=== PATIENT | male | born 1960 | race Caucasian/White ===

== ENCOUNTER → 2020-05-19 | Outpatient (CLI) | payer BC ==
--- NOTE | 2020-05-19 10:56 | P.PAINCN ---
History of Present Illness - Reason for Consult Consult date: 05/19/20 - History of Present Illness This is 60 years old male with a chronic history of severe low back pain started 5 years ago, he denies any initiating event and he reported that he had decreased sensation in the lower extremity, mainly in the left lower extremity, the pain is constant and increases with any activity interference with her quality of life patient uses cane to ambulate, he denies any change in the bowel movement or urination but he reported that the intensity of the pain interferes with her quality of life, pain intensity is 6/10 increased to 10 over 10 with activity. Past Medical History Past Medical History: Diabetes Mellitus, Musculoskeletal Disorder, Osteoarthritis (OA), Sleep Apnea/CPAP/BIPAP Additional Past Medical History / Comment(s): doesn't use anything for sleep apnea History of Any Multi-Drug Resistant Organisms: None Reported Past Surgical History: Appendectomy Additional Past Surgical History / Comment(s): cervical fusion, circumcision Past Anesthesia/Blood Transfusion Reactions: No Reported Reaction Smoking Status: Current every day smoker Past Alcohol Use History: Occasional Additional Past Alcohol Use History / Comment(s): 1/2ppd since age of 18 Past Drug Use History: None Reported Medications and Allergies Home Medications Medication Instructions Recorded Confirmed Type metFORMIN HCL [Glucophage] 500 mg PO BID 05/15/20 05/15/20 History Allergies Allergy/AdvReac Type Severity Reaction Status Date / Time bee pollen Allergy Anaphylaxis Verified 05/15/20 15:19 egg AdvReac Nausea & Verified 05/15/20 15:19 Vomiting Physical Exam Vitals: Vital Signs Temp Pulse Resp BP Pulse Ox 05/19/20 10:20 97.7 F 68 18 145/76 94 L - Constitutional Physical Examinations : -Constitutiona : Cooperative , not in acute distress . -HEENT : nech : supple , no Lymphadenopathy , normal thyroid size . : eyes : no ptosis , no icterus, no photophobia . - neurologic : Cranial nerve II to XII intact , no focal neurological deffecit . -psychatric : alert , oriented X 3 , appropriate affect , intact judgment and insight . -Lymphatic : no Lymphadenopathy . - musculoskeltal : Lumber spine moter stegnth lower extremities ,thigh and legs 5/5 Right side , 5/5 Left side deep tendon reflexes : normal Knee Jerk , normal ankle Jerk lumber facet Loading Test =positive Right , positive Left Range of motion of the lumbar spine Flexion 30 degrees, extension 10 degrees strait leg raising test = negative bilaterally Fabere test= positive Right , and positive LT . tenderness over the Sacroiliac joint on the Right , and Left sides Results Comments: MRI of the lumbar spine multilevel lumbar bulging disc disease multilevel lumbar facet arthropathy and spondylolisthesis and lumbar spinal stenosis Assessment and Plan Plan: Assessment and plan=1-lumbar spinal stenosis. 2-lumbar degenerative disc disease. 3-lumbar spondylosis with lumbar facet arthropathy. Patient could benefit from lumbar epidural steroid injection at L4 5 or L5-S1 under fluoroscopy guidance Time with Patient: Greater than 30 PQRS Measure Charge Sheet Measure #130: Documentation of Current Meds in Medical Chart: Patient's medications documented in chart Measure #226: Tobacco Use: Screen & Cessation Intervention: Pt screened for tobacco use AND intervention given Measure #111: Pneumonia Vaccination: Pneumococcal vaccine NOT administered or previously given Measure #47: Advance Care Plan: Advance care planning discussed & documented, pt chose/unable to give Measure #412: Opioid Treatment Agreement: No documentation of signed opioid treatment agreement Measure #408: Opioid Therapy Follow-up Evaluation: Patient had NO f/u eval minimum every 3 months during opioid therapy Measure #317: Preventitive Care & Scrn High Bld Press & F/U: Pre-hypertensive or hypertensive BP documented, pt will f/u with PCP Measure #128: Body Mass Index (BMI) Screening & Follow-up: BMI documented ABOVE normal parameters - f/u documented Measure #131: Pain Assessment & Follow-up: Pain positive & plan documented, Follow-up scheduled Measure #431: Unhealthy Alcohol Use Preventative Care & Scrn: Patient not identified as an unhealthy alcohol user PQRS Narrative: Blood Pressure 145/76 Pain Intensity [Back] 2 Scale Used Numeric (1 - 10) Hx Alcohol Use (MH) No Home Medications: Ambulatory Orders metFORMIN HCL [Glucophage] 500 mg PO BID 05/15/20
== END ==
CPT/HCPCS: 99211

== ENCOUNTER 2021-03-19 18:49 | Emergency (ER) | payer BC ==
[2021-03-19 19:15] VITALS: TEMP 97.8
[2021-03-19] MEDS ORDERED: SODIUM CHLORIDE 0.9% 1,000 ML IV STA (19:36)
[2021-03-19 19:56] LABS: Basophils % (A) 0 %; Eosinophils # (A) 0.1 k/uL (0-0.7); Eosinophils % (A) 1 %; HCT 47.4 % (39.0-53.0); HGB 15.9 gm/dL (13.0-17.5); Lymphocytes # (A) 1.5 k/uL (1.0-4.8); Lymphocytes % (A) 14 %; MCH 29.2 pg (25.0-35.0); MCHC 33.5 g/dL (31.0-37.0); MCV 87.3 fL (80.0-100.0); Mean Platelet Volume 9.3; Monocytes # (A) 0.5 k/uL (0-1.0); Monocytes % (A) 5 %; Neutrophils # (A) 8.8 k/uL (1.3-7.7); Neutrophils % (A) 80 %; Platelet Count 184 k/uL (150-450); RBC 5.44 m/uL (4.30-5.90); RDW 13.7 % (11.5-15.5)
[2021-03-19 20:07] LABS: ALT 29 U/L (4-49); AST 33 U/L (17-59); African American GFR (CKD) >90 (>60 ml/min/1.73 sqM); Albumin 4.3 g/dL (3.5-5.0); Alkaline Phosphatase 79 U/L (38-126); Anion Gap 9 mmol/L; Blood Urea Nitrogen 13 mg/dL (9-20); Calcium 9.1 mg/dL (8.4-10.2); Carbon Dioxide 26 mmol/L (22-30); Chloride 102 mmol/L (98-107); Glucose 149 mg/dL (74-99); Non-African American GFR(CKD) >90 (>60 ml/min/1.73 sqM); Potassium 4.4 mmol/L (3.5-5.1); Sodium 137 mmol/L (137-145); Total Bilirubin 0.5 mg/dL (0.2-1.3); Total Protein 7.1 g/dL (6.3-8.2)
--- NOTE | 2021-03-19 20:13 | CT ---
EXAMINATION TYPE: CT brain wo con DATE OF EXAM: 03/19/2021 COMPARISON: None HISTORY: seizure CT DLP: 1153.4 mGycm Automated exposure control for dose reduction was used. FINDINGS: There is a large area of abnormal density in the left frontal lobe with loss of the overlying sulci a nd loss of the duong-white differentiation. Inferior to this area there is vasogenic edema involving t he white matter of the left frontal lobe. The findings are highly suspicious for neoplasm there is al so slight shift of midline structures to the right secondary to the mass effect. There is no acute intra or extra-axial hemorrhage. The posterior fossa is grossly normal. The intraorbital contents appear normal and symmetric. Visualized paranasal sinuses are well aerated although there are mild chronic inflammatory change in the right maxillary sinus. IMPRESSION: FINDINGS CONSISTENT WITH A LARGE PARENCHYMAL MASS INVOLVING THE LEFT FRONTAL LOBE WITH VASOGENIC ROSI A. FINDINGS ARE HIGHLY SUSPICIOUS FOR NEOPLASM, PRIMARY OR METASTATIC DISEASE. MRI OF THE BRAIN WITH CONTRAST WOULD BE USEFUL FOR FURTHER CHARACTERIZATION. THERE IS SLIGHT SHIFT OF MIDLINE STRUCTURES TO THE RIGHT.
[2021-03-19] MEDS ORDERED: levETIRAcetam IV 1,000 MG in SALINE 1 100ML.BAG IVPB STA (20:22)
[2021-03-19] MEDS ORDERED: DEXAMETHASONE SOD PHOSPHATE 10 MG/ML 1 ML VIAL IVP STA (20:22)
--- NOTE | 2021-03-19 20:52 | ED ---
General Adult HPI - General Chief complaint: Seizure Stated complaint: Seizure Time Seen by Provider: 03/19/21 19:02 Source: family, EMS Mode of arrival: EMS - History of Present Illness Initial comments: Flaco is a 60-year-old male with a history of diabetes who is brought to the emergency department today via ambulance for evaluation of a new onset seizure. He can his brother worsening of the table eating dinner, patient just finished and his brother heard him dropped something, he thought he had nodded off to take a nap but when he looked the patient's arms were stiff and he was seizing. Patient has no history of seizure. - Related Data Home Medications Medication Instructions Recorded Confirmed metFORMIN HCL [Glucophage] 500 mg PO BID 05/15/20 03/19/21 Allergies Allergy/AdvReac Type Severity Reaction Status Date / Time bee pollen Allergy Anaphylaxis Verified 03/19/21 19:51 egg AdvReac Nausea & Verified 03/19/21 19:51 Vomiting Review of Systems ROS Statement: Those systems with pertinent positive or pertinent negative responses have been documented in the HPI. ROS Other: All systems not noted in ROS Statement are negative. Past Medical History Past Medical History: Diabetes Mellitus, Musculoskeletal Disorder, Osteoarthritis (OA), Sleep Apnea/CPAP/BIPAP Additional Past Medical History / Comment(s): doesn't use anything for sleep apnea History of Any Multi-Drug Resistant Organisms: None Reported Past Surgical History: Appendectomy Additional Past Surgical History / Comment(s): cervical fusion, circumcision Past Anesthesia/Blood Transfusion Reactions: No Reported Reaction Smoking Status: Current every day smoker Past Alcohol Use History: Occasional Past Drug Use History: None Reported General Exam - General Exam Comments Initial Comments: Physical Exam GENERAL: Patient is well-developed and well-nourished. Patient is nontoxic and well- hydrated and is in no distress. HENT: Normocephalic, Atraumatic. EYES: PERRL, EOMI PULMONARY: Unlabored respirations. No audible rales rhonchi or wheezing was noted. CARDIOVASCULAR: There is a regular rate and rhythm without any murmurs gallops or rubs. ABDOMEN: Soft and nontender with normal bowel sounds. SKIN: Skin is clear with no lesions or rashes and otherwise unremarkable. : Deferred NEUROLOGIC: Patient is alert and oriented x3. Moving all extremities spontaneously MUSCULOSKELETAL: Normal extremities with adequate strength and full range of motion. No lower extremity swelling or edema. No calf tenderness. PSYCHIATRIC: Normal psychiatric evaluation. Course Vital Signs 03/19/21 03/19/21 03/19/21 19:03 19:14 20:00 Temperature 97.8 F Pulse Rate 92 90 Respiratory 18 18 Rate Blood Pressure 134/86 134/86 118/71 O2 Sat by Pulse 93 L 93 L Oximetry 03/19/21 21:00 Temperature Pulse Rate 74 Respiratory 10 L Rate Blood Pressure 156/87 O2 Sat by Pulse 94 L Oximetry EKG Findings - EKG Comments: EKG Findings:: EKG was obtained due to new-onset seizure, EKG was obtained at 2007, rate is 90 rhythm is sinus with a right bundle-branch block, Q waves are noted but no acute ST elevations or depressions no evidence of ischemia or infarction. Medical Decision Making - Medical Decision Making Patient was seen and evaluated upon arrival to the emergency department, patient was a new onset seizures postictal on arrival he is taken to CT labs were obtained. She was awake alert oriented in no acute distress. No focal deficits. He does report he is recently been suffering from what he thought was sinus pressure but no other complaints. CTs concerning for an acute brain mass with vasogenic edema. Decadron and Keppra were ordered and administered. Patient was notified of the findings with his brother at bedside. Patient requests transfer to [facility] in [place] has his father is having a CABG there tomorrow and it would be easiest for his family to be able to visit them both in the same place. Patient was accepted ER to ER transfer at [place] by Dr. Carlisle - Lab Data Result diagrams: 03/19/21 19:44 03/19/21 19:44 Lab Results 03/19/21 03/19/21 03/19/21 Range/Units 19:44 19:44 19:44 WBC 11.0 H (3.8-10.6) k/uL RBC 5.44 (4.30-5.90) m/uL Hgb 15.9 (13.0-17.5) gm/dL Hct 47.4 (39.0-53.0) % MCV 87.3 (80.0-100.0) fL MCH 29.2 (25.0-35.0) pg MCHC 33.5 (31.0-37.0) g/dL RDW 13.7 (11.5-15.5) % Plt Count 184 (150-450) k/uL MPV 9.3 Neutrophils % 80 % Lymphocytes % 14 % Monocytes % 5 % Eosinophils % 1 % Basophils % 0 % Neutrophils # 8.8 H (1.3-7.7) k/uL Lymphocytes # 1.5 (1.0-4.8) k/uL Monocytes # 0.5 (0-1.0) k/uL Eosinophils # 0.1 (0-0.7) k/uL Basophils # 0.0 (0-0.2) k/uL Sodium 137 (137-145) mmol/L Potassium 4.4 (3.5-5.1) mmol/L Chloride 102 (98-107) mmol/L Carbon Dioxide 26 (22-30) mmol/L Anion Gap 9 mmol/L BUN 13 (9-20) mg/dL Creatinine 0.79 (0.66-1.25) mg/dL Est GFR (CKD-EPI)AfAm >90 (>60 ml/min/1.73 sqM) Est GFR (CKD-EPI)NonAf >90 (>60 ml/min/1.73 sqM) Glucose 149 H (74-99) mg/dL Calcium 9.1 (8.4-10.2) mg/dL Magnesium 2.0 (1.6-2.3) mg/dL Total Bilirubin 0.5 (0.2-1.3) mg/dL AST 33 (17-59) U/L ALT 29 (4-49) U/L Alkaline Phosphatase 79 (38-126) U/L Total Protein 7.1 (6.3-8.2) g/dL Albumin 4.3 (3.5-5.0) g/dL Urine Opiates Screen (NotDetected) Ur Oxycodone Screen (NotDetected) Urine Methadone Screen (NotDetected) Ur Propoxyphene Screen (NotDetected) Ur Barbiturates Screen (NotDetected) U Tricyclic Antidepress (NotDetected) Ur Phencyclidine Scrn (NotDetected) Ur Amphetamines Screen (NotDetected) U Methamphetamines Scrn (NotDetected) U Benzodiazepines Scrn (NotDetected) Urine Cocaine Screen (NotDetected) U Marijuana (THC) Screen (NotDetected) 03/19/21 Range/Units 20:53 WBC (3.8-10.6) k/uL RBC (4.30-5.90) m/uL Hgb (13.0-17.5) gm/dL Hct (39.0-53.0) % MCV (80.0-100.0) fL MCH (25.0-35.0) pg MCHC (31.0-37.0) g/dL RDW (11.5-15.5) % Plt Count (150-450) k/uL MPV Neutrophils % % Lymphocytes % % Monocytes % % Eosinophils % % Basophils % % Neutrophils # (1.3-7.7) k/uL Lymphocytes # (1.0-4.8) k/uL Monocytes # (0-1.0) k/uL Eosinophils # (0-0.7) k/uL Basophils # (0-0.2) k/uL Sodium (137-145) mmol/L Potassium (3.5-5.1) mmol/L Chloride (98-107) mmol/L Carbon Dioxide (22-30) mmol/L Anion Gap mmol/L BUN (9-20) mg/dL Creatinine (0.66-1.25) mg/dL Est GFR (CKD-EPI)AfAm (>60 ml/min/1.73 sqM) Est GFR (CKD-EPI)NonAf (>60 ml/min/1.73 sqM) Glucose (74-99) mg/dL Calcium (8.4-10.2) mg/dL Magnesium (1.6-2.3) mg/dL Total Bilirubin (0.2-1.3) mg/dL AST (17-59) U/L ALT (4-49) U/L Alkaline Phosphatase (38-126) U/L Total Protein (6.3-8.2) g/dL Albumin (3.5-5.0) g/dL Urine Opiates Screen Not Detected (NotDetected) Ur Oxycodone Screen Not Detected (NotDetected) Urine Methadone Screen Not Detected (NotDetected) Ur Propoxyphene Screen Not Detected (NotDetected) Ur Barbiturates Screen Not Detected (NotDetected) U Tricyclic Antidepress Not Detected (NotDetected) Ur Phencyclidine Scrn Not Detected (NotDetected) Ur Amphetamines Screen Not Detected (NotDetected) U Methamphetamines Scrn Not Detected (NotDetected) U Benzodiazepines Scrn Not Detected (NotDetected) Urine Cocaine Screen Not Detected (NotDetected) U Marijuana (THC) Screen Not Detected (NotDetected) Disposition Clinical Impression: New onset seizure, Brain mass Disposition: OTHER INSTITUTION NOT DEFINED Instructions (If sedation given, give patient instructions): Seizure/Epilepsy Discharge Instructions & Follow-Up Is patient prescribed a controlled substance at d/c from ED?: No Referrals: Eduard Bach MD [Primary Care Provider] - 1-2 days - Out of Hospital Transfer - Req. Specs Out of Hospital Transfer - Requested Specifics: Neurological ICU ([facility])
--- NOTE | 2021-03-19 21:36 | XR ---
EXAMINATION TYPE: XR chest 1V DATE OF EXAM: 03/19/2021 COMPARISON: None HISTORY: Seizure TECHNIQUE: Single frontal view of the chest is obtained. FINDINGS: There is no focal air space opacity, pleural effusion, or pneumothorax seen. The cardiac silhouette size is within normal limits. The osseous structures are intact. IMPRESSION: No acute process.
[2021-03-19 21:48] LABS: Amphetamine Screen,Urine Not Detected (NotDetected); Barbiturate Screen,Urine Not Detected (NotDetected); Benzodiazepines Screen,Urine Not Detected (NotDetected); Cocaine Screen,Urine Not Detected (NotDetected); Methadone Screen, Urine Not Detected (NotDetected); Opiate Screen,Urine Not Detected (NotDetected); Oxycodone Screen, Urine Not Detected (NotDetected); Phencyclidine Screen,Urine Not Detected (NotDetected); Tricyclic Antidepressant,Urine Not Detected (NotDetected); Urn Cannabinoid Scrn Not Detected (NotDetected)
[2021-03-19 22:42] VITALS: BP 148/99; PULSE 71; RESP 14
== END 2021-03-19 23:29 | disposition other institution (70) ==
LOC: EC 18:49
DX: R56.9 Unspecified convulsions (principal); G93.89 Other specified disorders of brain; E11.9 Type 2 diabetes mellitus without complications; M19.90 Unspecified osteoarthritis, unspecified site; F17.200 Nicotine dependence, unspecified, uncomplicated; Z79.84 Long term (current) use of oral hypoglycemic drugs
CPT/HCPCS: 99285; 96374; 96375; 96361 ×2; 36415; 93005; 80053; 83735; 85025; 80306; 71045; 70450; J1100; J1953; 99284

== ENCOUNTER → 2021-04-18 | Outpatient (CLI) | payer BC ==
--- NOTE | 2021-04-18 07:24 | CT ---
EXAMINATION TYPE: CT brain wo con DATE OF EXAM: 04/18/2021 COMPARISON: 03/19/2021 HISTORY: benign neoplasm of cerebral meninges CT DLP: 1029.90 mGycm Automated exposure control for dose reduction was used. FINDINGS: There are postsurgical changes involving the left frontal lobe with a left frontal craniotomy. The ma ss in the left frontal lobe of the removed in the interval. There is mild vasogenic edema in the left frontal white matter and a small low-density subdural fluid collection with air indicating recent yancey rgery. There is no mass effect or shift of midline structures. The ventricles are normal in size. There is no acute intra or extra-axial hemorrhage. There are mild chronic inflammatory changes in the right maxillary sinus. IMPRESSION: POSTSURGICAL CHANGES INVOLVING THE LEFT FRONTAL LOBE DESCRIBED ABOVE. THERE IS NO ACUTE BLEED OR M ASS EFFECT.
== END | disposition home or self-care (01) ==
LOC: RADCTMAIN 07:00
PROVIDERS: ATTEND Family Medicine
DX: J32.0 Chronic maxillary sinusitis (principal); R90.89 Other abnormal findings on diagnostic imaging of central nervous system
CPT/HCPCS: 70450

== ENCOUNTER → 2023-08-09 | Outpatient (CLI) | payer BC ==
--- NOTE | 2023-08-09 15:31 | MR ---
EXAMINATION TYPE: MR brain wo/w con DATE OF EXAM: 08/09/2023 COMPARISON: 03/30/2022 HISTORY: 63-year-old male D32.0, F/U meningioma post surgical TECHNIQUE: Multiplanar, multisequence images of the brain and brainstem were acquired before and aft er administration of 12.5 mL IV Gadavist. Diffusion weighted imaging is performed. FINDINGS: Post surgical change of superior left craniotomy. Additional resection cavity within the posterior le ft frontal lobe superiorly. T2 bright white matter change at the resection cavity likely relates to s coliosis. Some mild patchy periventricular bright white matter change likely mild burden of chronic small vesse l ischemic disease. No abnormal enhancing lesions are identified. Dural venous sinuses are patent. No evidence for acute infarction, mass effect, midline shift, herniation, effacement of basal cistern s, or extra-axial fluid collection. The ventricles and sulci are age-appropriate. Midline structures demonstrate normal morphology. The craniocervical junction is normal. There is moderate mucosal thickening throughout the ethmoid air cells. Globes are intact. IMPRESSION: 1. Redemonstrated superior left frontal craniotomy flap with underlying resection cavity and surround ing gliosis. The overall appearance is unchanged. On postcontrast exam, no suspicious residual enhanc ement is seen here. 2. Mild burden of chronic small vessel ischemic disease. No acute intracranial abnormality. 3. Moderate chronic ethmoid sinus disease.
== END | disposition home or self-care (01) ==
LOC: RADMRIMAIN 11:27
PROVIDERS: ATTEND Family Medicine
DX: D32.0 Benign neoplasm of cerebral meninges (principal); G93.89 Other specified disorders of brain; I67.82 Cerebral ischemia; J32.2 Chronic ethmoidal sinusitis
CPT/HCPCS: 70553; A9585

== ENCOUNTER 2023-11-25 07:25 | Inpatient (IN) | payer BC ==
[2023-11-25 08:15] LABS: Basophils # (A) 0.1 k/uL (0-0.2); Basophils % (A) 1 %; Eosinophils # (A) 0.1 k/uL (0-0.7); Eosinophils % (A) 1 %; HGB 15.6 gm/dL (13.0-17.5); Lymphocytes # (A) 2.4 k/uL (1.0-4.8); Lymphocytes % (A) 28 %; MCH 28.1 pg (25.0-35.0); MCHC 31.8 g/dL (31.0-37.0); MCV 88.5 fL (80.0-100.0); Mean Platelet Volume 8.9; Monocytes # (A) 0.4 k/uL (0-1.0); Monocytes % (A) 5 %; Neutrophils # (A) 5.5 k/uL (1.3-7.7); Neutrophils % (A) 64 %; Platelet Count 183 k/uL (150-450); RBC 5.54 m/uL (4.30-5.90); RDW 14.1 % (11.5-15.5); WBC 8.6 k/uL (3.8-10.6)
[2023-11-25 08:27] LABS: ALT 20 U/L (4-49); AST 20 U/L (17-59); African American GFR (CKD) >90 (>60 ml/min/1.73 sqM); Albumin 4.6 g/dL (3.5-5.0); Alkaline Phosphatase 76 U/L (38-126); Anion Gap 9 mmol/L; Blood Urea Nitrogen 12 mg/dL (9-20); Calcium 9.3 mg/dL (8.4-10.2); Carbon Dioxide 28 mmol/L (22-30); Chloride 104 mmol/L (98-107); Glucose 147 mg/dL (74-99); Magnesium 1.9 mg/dL (1.6-2.3); Non-African American GFR(CKD) >90 (>60 ml/min/1.73 sqM); Potassium 4.7 mmol/L (3.5-5.1); Sodium 141 mmol/L (137-145)
[2023-11-25 08:28] LABS: Prothrombin Time 10.7 sec (10.0-12.5)
--- NOTE | 2023-11-25 09:26 | XR ---
EXAMINATION TYPE: XR chest 2V DATE OF EXAM: 11/25/2023 8:39 AM CLINICAL INDICATION: Male, 63 years old with history of Chest pain; COMPARISON: Chest radiographs from 03/19/2021 TECHNIQUE: XR chest 2V Frontal view of the chest. FINDINGS: Lungs/Pleura: There is no evidence of pleural effusion, focal consolidation, or pneumothorax. Pulmonary vascularity: Unremarkable. Heart/mediastinum: Cardiomediastinal silhouette is unremarkable. Musculoskeletal: No acute osseous pathology. There is fixation hardware in the lower cervical spine. Other findings: None Lines/Tubes: IMPRESSION: No acute cardiopulmonary disease/process. [facility], , 11/25/2023 9:24 AM
--- NOTE | 2023-11-25 10:30 | ED ---
Recheck HPI - General Chief Complaint: Recheck/Abnormal Lab/Rx Stated Complaint: ABN EKG Time Seen by Provider: 11/25/23 07:30 Source: patient Mode of arrival: ambulatory Limitations: no limitations - History of Present Illness Initial Comments: 63-year-old male presents to the emergency department from [facility]. Patient was presenting there today to have lumbar injections. They checked the vital signs on the patient and found his heart rate to be high. EKG demonstrated that the patient was in atrial flutter. He has no history of dysrhythmia. No coronary disease. Patient denies any chest pain or shortness of breath. Patient asymptomatic. He denies any recent illnesses. No history of DVT or PE. Does have chronic left leg swelling for which she has had extensive workup and the swelling was attributed to his lower back surgery. He denies fevers, chills or cough. No history of thyroid disease. No other all eviating, precipitating or modifying factors - Related Data Previous Rx's Medication Instructions Recorded Apixaban [Eliquis] 5 mg PO BID 30 Days #60 tab 11/26/23 Atorvastatin [Lipitor] 20 mg PO DAILY 30 Days #30 tab 11/26/23 Dapagliflozin Propanediol [Farxiga] 10 mg PO DAILY 30 Days #30 tab 11/26/23 Metoprolol Tartrate [Lopressor] 50 mg PO BID 30 Days #60 tab 11/26/23 Allergies Allergy/AdvReac Type Severity Reaction Status Date / Time bee pollen Allergy Anaphylaxis Verified 11/25/23 11:16 hydrocodone [From Vicodin] Allergy Rash/Hives Verified 11/25/23 11:16 egg AdvReac Nausea & Verified 11/25/23 11:16 Vomiting Review of Systems ROS Statement: Those systems with pertinent positive or pertinent negative responses have been documented in the HPI. ROS Other: All systems not noted in ROS Statement are negative. Past Medical History Past Medical History: Diabetes Mellitus, Musculoskeletal Disorder, Osteoarthritis (OA), Sleep Apnea/CPAP/BIPAP Additional Past Medical History / Comment(s): doesn't use anything for sleep apnea History of Any Multi-Drug Resistant Organisms: None Reported Past Surgical History: Appendectomy Additional Past Surgical History / Comment(s): cervical fusion, circumcision Past Anesthesia/Blood Transfusion Reactions: No Reported Reaction Past Psychological History: No Psychological Hx Reported Smoking Status: Current every day smoker Past Alcohol Use History: Occasional Past Drug Use History: None Reported General Exam Limitations: no limitations General appearance: alert, in no apparent distress Head exam: Present: atraumatic, normocephalic, normal inspection Eye exam: Present: normal appearance, PERRL, EOMI. Absent: scleral icterus, conjunctival injection, periorbital swelling ENT exam: Present: normal exam, mucous membranes moist Neck exam: Present: normal inspection. Absent: tenderness, meningismus, lymphadenopathy Respiratory exam: Present: normal lung sounds bilaterally. Absent: respiratory distress, wheezes, rales, rhonchi, stridor Cardiovascular Exam: Present: regular rate, tachycardia, normal heart sounds. Absent: systolic murmur, diastolic murmur, rubs, gallop, clicks GI/Abdominal exam: Present: soft, normal bowel sounds. Absent: distended, te nderness, guarding, rebound, rigid Extremities exam: Present: normal inspection, full ROM, normal capillary refill. Absent: tenderness, pedal edema, joint swelling, calf tenderness Back exam: Present: normal inspection Neurological exam: Present: alert, oriented X3, CN II-XII intact Psychiatric exam: Present: normal affect, normal mood Skin exam: Present: warm, dry, intact, normal color. Absent: rash Course Vital Signs 11/25/23 11/25/23 11/25/23 07:27 08:03 08:55 Temperature 97.6 F Pulse Rate 137 H 140 H Respiratory 20 20 20 Rate Blood Pressure 111/78 148/69 O2 Sat by Pulse 96 98 Oximetry 11/25/23 11/25/23 11/25/23 08:59 09:47 11:00 Temperature Pulse Rate 100 100 135 H Respiratory 20 20 20 Rate Blood Pressure 145/86 100/48 102/58 O2 Sat by Pulse 98 98 98 Oximetry 11/25/23 11/25/23 11/25/23 12:00 13:00 14:00 Temperature Pulse Rate 110 H 90 90 Respiratory 20 20 20 Rate Blood Pressure 105/60 106/60 110/60 O2 Sat by Pulse 98 98 98 Oximetry 11/25/23 11/25/23 11/25/23 14:57 17:00 18:00 Temperature Pulse Rate 98 77 77 Respiratory 20 20 20 Rate Blood Pressure 112/60 116/92 109/69 O2 Sat by Pulse 98 98 96 Oximetry 11/25/23 11/25/23 11/26/23 19:24 23:58 06:06 Temperature Pulse Rate 75 78 71 Respiratory 18 17 18 Rate Blood Pressure 121/79 111/82 121/91 O2 Sat by Pulse 95 Oximetry 11/26/23 11/26/23 11/26/23 09:00 12:00 13:46 Temperature Pulse Rate 69 76 68 Respiratory 18 18 18 Rate Blood Pressure 114/76 116/76 122/76 O2 Sat by Pulse 98 98 Oximetry 11/26/23 16:17 Temperature 98.6 F Pulse Rate 86 Respiratory 16 Rate Blood Pressure 125/82 O2 Sat by Pulse 98 Oximetry Medical Decision Making - Medical Decision Making Was pt. sent in by a medical professional or institution (, PA, AIR DEFENSE CONTROL OFFICER, urgent care, hospital, or jail...) When possible be specific @ -Patient presented from [facility] Did you speak to anyone other than the patient for history (EMS, parent, family, police, friend...)? What history was obtained from this source @ -Spoke with the for history Did you review nursing and triage notes (agree or disagree)? Why? @ -I reviewed and agree with nursing and triage notes Were old charts reviewed (outside hosp., previous admission, EMS record, old EKG, old radiological studies, urgent care reports/EKG's, jail records)? Report findings @ -No old charts were reviewed Differential Diagnosis (chest pain, altered mental status, abdominal pain women, abdominal pain men, vaginal bleeding, weakness, fever, dyspnea, syncope, headache, dizziness, GI bleed, back pain, seizure, CVA, palpatations, mental health, musculoskeletal)? @ -Differential Palpitations Ventricular arrhythmias, atrial arrhythmias, myocardial infarction, anemia, thyrotoxicosis, electrolyte imbalance, hypokalemia, pulmonary embolism, pulmonary disease, drugs, alcohol, anxiety, stress.... This is not meant to be an all-inclusive list. EKG interpreted by me (3pts min.). @ -Yes and demonstrates atrial flutter with a rate of 138. QRS 151. QTc of 386. No acute ST segment elevations or depressions. Right bundle branch block Repeat EKG at 1341 continues to demonstrate atrial flutter with a rate of 68. QRS 169. QTc of 440. No acute ST segment elevations or depressions X-rays interpreted by me (1pt min.). @ -Yes and demonstrates no acute process CT interpreted by me (1pt min.). @ -None done U/S interpreted by me (1pt. min.). @ -None done What testing was considered but not performed or refused? (CT, X-rays, U/S, labs )? Why? @ -None What meds were considered but not given or refused? Why? @ -None Did you discuss the management of the patient with other professionals (professionals i.e. , PA, AIR DEFENSE CONTROL OFFICER, lab, RT, psych nurse, web content & social media manager, blood bank credit clerk, teacher, loan workout officer, community case manager)? Give summary @ -Spoke with Dr. France for admission Was smoking cessation discussed for >3mins.? @ -No Was critical care preformed (if so, how long)? @ -Yes, 35 minutes for management of rapid A-fib Were there social determinants of health that impacted care today? How? (Homelessness, low income, unemployed, alcoholism, drug addiction, transportation, low edu. Level, literacy, decrease access to med. care, retirement, rehab)? @ -No Was there de-escalation of care discussed even if they declined (Discuss DNR or withdrawal of care, Hospice)? DNR status @ -No What co-morbidities impacted this encounter? (DM, HTN, Smoking, COPD, CAD, Cancer, CVA, ARF, Chemo, Hep., AIDS, mental health diagnosis, sleep apnea, morbid obesity)? @ -None Was patient admitted / discharged? Hospital course, mention meds given and route, prescriptions, significant lab abnormalities, going to OR and other pertinent info. @ -Upon arrival patient seen and evaluated in room 15. Thorough history and physical exam was performed. IV access was established. Laboratory studies are conducted. Chest x-ray was performed. Patient initiated on a Cardizem and heparin drip. Will be admitted for A-fib with RVR Undiagnosed new problem with uncertain prognosis? @ -Yes Drug Therapy requiring intensive monitoring for toxicity (Heparin, Nitro, Insul in, Cardizem)? @ -Cardizem, heparin Were any procedures done? @ -No Diagnosis/symptom? @ -New onset A-fib with RVR Acute, or Chronic, or Acute on Chronic? @ -Acute Uncomplicated (without systemic symptoms) or Complicated (systemic symptoms)? @ -Complicated Side effects of treatment? @ -No Exacerbation, Progression, or Severe Exacerbation? @ -No Poses a threat to life or bodily function? How? (Chest pain, [place], [place], pneumonia, PE, COPD, DKA, ARF, appy, cholecystitis, CVA, Diverticulitis, Homicidal, Suicidal, threat to staff... and all critical care pts) @ -No - Lab Data Result diagrams: 11/26/23 06:29 11/26/23 06:29 Lab Results 11/25/23 11/25/23 11/25/23 Range/Units 07:31 07:31 07:31 WBC 8.6 (3.8-10.6) k/uL RBC 5.54 (4.30-5.90) m/uL Hgb 15.6 (13.0-17.5) gm/dL Hct 49.0 (39.0-53.0) % MCV 88.5 (80.0-100.0) fL MCH 28.1 (25.0-35.0) pg MCHC 31.8 (31.0-37.0) g/dL RDW 14.1 (11.5-15.5) % Plt Count 183 (150-450) k/uL MPV 8.9 Neutrophils % 64 % Lymphocytes % 28 % Monocytes % 5 % Eosinophils % 1 % Basophils % 1 % Neutrophils # 5.5 (1.3-7.7) k/uL Lymphocytes # 2.4 (1.0-4.8) k/uL Monocytes # 0.4 (0-1.0) k/uL Eosinophils # 0.1 (0-0.7) k/uL Basophils # 0.1 (0-0.2) k/uL PT 10.7 (10.0-12.5) sec INR 1.0 (<1.2) APTT 26.0 (22.0-30.0) sec Sodium 141 (137-145) mmol/L Potassium 4.7 (3.5-5.1) mmol/L Chloride 104 (98-107) mmol/L Carbon Dioxide 28 (22-30) mmol/L Anion Gap 9 mmol/L BUN 12 (9-20) mg/dL Creatinine 0.66 (0.66-1.25) mg/dL Est GFR (CKD-EPI)AfAm >90 (>60 ml/min/1.73 sqM) Est GFR (CKD-EPI)NonAf >90 (>60 ml/min/1.73 sqM) Glucose 147 H (74-99) mg/dL Calcium 9.3 (8.4-10.2) mg/dL Magnesium 1.9 (1.6-2.3) mg/dL Total Bilirubin 1.0 (0.2-1.3) mg/dL AST 20 (17-59) U/L ALT 20 (4-49) U/L Alkaline Phosphatase 76 (38-126) U/L Troponin I (0.000-0.034) ng/mL Total Protein 7.0 (6.3-8.2) g/dL Albumin 4.6 (3.5-5.0) g/dL TSH 3.390 (0.465-4.680) mIU/L 11/25/23 Range/Units 07:31 WBC (3.8-10.6) k/uL RBC (4.30-5.90) m/uL Hgb (13.0-17.5) gm/dL Hct (39.0-53.0) % MCV (80.0-100.0) fL MCH (25.0-35.0) pg MCHC (31.0-37.0) g/dL RDW (11.5-15.5) % Plt Count (150-450) k/uL MPV Neutrophils % % Lymphocytes % % Monocytes % % Eosinophils % % Basophils % % Neutrophils # (1.3-7.7) k/uL Lymphocytes # (1.0-4.8) k/uL Monocytes # (0-1.0) k/uL Eosinophils # (0-0.7) k/uL Basophils # (0-0.2) k/uL PT (10.0-12.5) sec INR (<1.2) APTT (22.0-30.0) sec Sodium (137-145) mmol/L Potassium (3.5-5.1) mmol/L Chloride (98-107) mmol/L Carbon Dioxide (22-30) mmol/L Anion Gap mmol/L BUN (9-20) mg/dL Creatinine (0.66-1.25) mg/dL Est GFR (CKD-EPI)AfAm (>60 ml/min/1.73 sqM) Est GFR (CKD-EPI)NonAf (>60 ml/min/1.73 sqM) Glucose (74-99) mg/dL Calcium (8.4-10.2) mg/dL Magnesium (1.6-2.3) mg/dL Total Bilirubin (0.2-1.3) mg/dL AST (17-59) U/L ALT (4-49) U/L Alkaline Phosphatase (38-126) U/L Troponin I <0.012 (0.000-0.034) ng/mL Total Protein (6.3-8.2) g/dL Albumin (3.5-5.0) g/dL TSH (0.465-4.680) mIU/L Disposition Clinical Impression: New onset atrial flutter Disposition: ADMITTED IP TO THIS [facility] Condition: Stable Is patient prescribed a controlled substance at d/c from ED?: No Time of Disposition: 11:33 Decision to Admit Reason: Admit from EC Decision Date: 11/25/23 Decision Time: 11:33
[2023-11-25] MEDS ORDERED: HEPARIN SODIUM 1,000 UN/ML (10ML VL) IV PRN (11:08)
[2023-11-25] MEDS: HEPARIN SOD,PORK IN 0.45% NACL 25,000 UNIT in 0.45% NACL 1 250ML.BAG IV SCH (11:27)
[2023-11-25] MEDS: HEPARIN SODIUM 1,000 UN/ML (10ML VL) IV ONE (11:29)
[2023-11-25] MEDS ORDERED: NALOXONE 0.4 MG/ML 1 ML VIAL IV PRN (11:34)
[2023-11-25] MEDS: DILTIAZEM 125 MG in SODIUM CHLORIDE 0.9% 100 ML IV SCH (11:54)
[2023-11-25] MEDS: DILTIAZEM DRIP BOLUS FROM BAG 1 MG SOLN IV ONE (11:56)
--- NOTE | 2023-11-25 15:13 | P.HPIM ---
History of Present Illness H&P Date: 11/25/23 History of Presenting Illness: Patient is a very pleasant 63-year-old male with a past medical history of nicotine dependence and chronic back pain status post cervical fusion follows outpatient with pain management. He presented to the hospital from [facility] where he initially presented to have steroid injections to the lumbar spine secondary to chronic pain. Preprocedure vital signs revealed patient to have tachycardia with heart rate in 140s and an EKG was completed showing new onset atrial flutter. Patient was asymptomatic but sent to our facility for evaluation. Upon arrival to our hospital, patient underwent evaluation in the emergency department. Vital signs upon arrival show blood pressure 111/78, heart rate 137, respiratory rate 20, temp 97.6 F, and SpO2 of 96% on room air. EKG was completed showing atrial flutter with RVR at 138 bpm. Chest x-ray completed negative for acute cardiopulmonary process. Labs completed and reviewed. CBC unremarkable. Coagulation profile normal findings. BMP showing mild hyperglycemia with glucose of 147 otherwise normal findings. Magnesium 1.9. Liver profile unremarkable. Troponin was less than 0.012 and TSH was also normal findings at 3.390. Patient was started on anticoagulation with low intensity heparin infusion along with Cardizem infusion for rate control. Patient was admitted under our services with consultation to cardiology. Upon evaluation at bedside, patient remains asymptomatic to any complaints. He denies having any headache, lightheadedness, dizziness, chest pain, pa lpitations, or shortness of breath. He reports chronic lower back pain and occasional lower extremity edema. Patient denies cardiac history but does report extensive cardiac history with family including his father and brother both previously being diagnosed with atrial fibrillation. [id number] score is 0 patient denies history of hypertension, CHF, TIAs, or any other cardiac history. He reports his hemoglobin A1c is borderline prediabetes. He denies having any daily medication regimen. Review of systems: Pertinent positives and negatives as discussed in HPI, a complete review of systems was performed and all other systems are negative. Physical exam: Vital signs reviewed and stable. General: Nontoxic, no distress and appears stated age. Derm: Skin warm and dry, normal coloration for ethnicity. Head: Atraumatic, normocephalic and symmetric. Eyes: EOM's intact, no lid lag, and anicteric sclera Mouth: no lip lesions, mucus membranes moist Cardiovascular: Tachycardic rate and regular with normal S1S2, no murmur, positive posterior tibial pulses bilaterally, and cap refill < 2 seconds. Lungs: Respirations even, regular, and unlabored on room air. Lungs CTA bilaterally, no rhonchi, no rales, no wheezing, and no accessory muscle usage. Abdominal: soft, nontender to palpation, no guarding, no appreciable organomegaly Ext: ROM intact. No gross muscle atrophy, no edema, no contractures Neuro: Speech clear, face symmetrical and CN II-XII grossly intact with no noted focal neuro deficits Psych: Alert and oriented to person, place, time, and situation. Appropriate and pleasant affect. Assessment and Plan of Care: Atrial flutter with RVR, New onset -Cardiology consulted, appreciate recommendations -Telemetry monitoring -Troponin was negative at less than 0.012. TSH normal findings at 3.390. -Continue low intensity heparin infusion with close monitoring of PTT every 6 hours for goal therapeutic range of 45 to 79 seconds. -Continue Cardizem infusion at 5 mg/h, titrate up to 15 mg/h for goal heart rate of 80 to 100 bpm. -Echocardiogram to be completed Nicotine dependence -Recommend smoking cessation. Order placed for nicotine patch 14 mg daily. Data and imaging reviewed: As stated above in HPI The patient is admitted with an anticipated less than 2 midnight stay for evaluation of new onset atrial fibrillation with RVR CODE STATUS: Full code DVT prophylaxis: Heparin infusion Anticipated discharge date: Pending clinical course, likely within the next [address]: Home Patient was seen independently by Nurse Practitioner. This document was prepared using [employer] dictation software. Please allow for errors in regulatory technician while rare they do occur. I reviewed the documentation as provided by the ODALIS above, who is the original author of this note. I agree with the documented assessment and plan, with the following changes: none Past Medical History Past Medical History: Diabetes Mellitus, Musculoskeletal Disorder, Osteoarthritis (OA), Sleep Apnea/CPAP/BIPAP Additional Past Medical History / Comment(s): doesn't use anything for sleep a pnea History of Any Multi-Drug Resistant Organisms: None Reported Past Surgical History: Appendectomy Additional Past Surgical History / Comment(s): cervical fusion, circumcision Past Anesthesia/Blood Transfusion Reactions: No Reported Reaction Past Psychological History: No Psychological Hx Reported Smoking Status: Current every day smoker Past Alcohol Use History: Occasional Past Drug Use History: None Reported Medications and Allergies Home Medications Medication Instructions Recorded Confirmed Type Apixaban [Eliquis] 5 mg PO BID 30 Days #60 tab 11/25/23 Rx Allergies Allergy/AdvReac Type Severity Reaction Status Date / Time bee pollen Allergy Anaphylaxis Verified 11/25/23 11:16 hydrocodone [From Vicodin] Allergy Rash/Hives Verified 11/25/23 11:16 egg AdvReac Nausea & Verified 11/25/23 11:16 Vomiting Physical Exam Osteopathic Statement: *. No significant issues noted on an osteopathic structural exam other than those noted in the History and Physical/Consult. Vitals: Vital Signs Temp Pulse Resp BP Pulse Ox 11/25/23 11:00 135 H 20 102/58 98 11/25/23 09:47 100 20 100/48 98 11/25/23 08:59 100 20 145/86 98 11/25/23 08:55 20 11/25/23 08:03 140 H 20 148/69 98 11/25/23 07:27 97.6 F 137 H 20 111/78 96 Intake and Output 11/24/23 11/25/23 11/25/23 22:59 06:59 14:59 Other: Weight 127.006 kg Results CBC & Chem 7: 11/26/23 06:29 11/26/23 06:29 Labs: Abnormal Lab Results - Last 24 Hours (Table) 11/25/23 Range/Units 07:31 Glucose 147 H (74-99) mg/dL
--- NOTE | 2023-11-25 17:13 | CA ---
Transthoracic Echo Report Name: Flaco Marquez Age: 63 Gender: M : 1960 Exam Date: 11/25/2023 15:21 Exam Location: [facility] Ht (in): 70 Wt (lb): 280 Ordering Physician: Royer Cha Attending/Referring Phys: Beam Builder Helper Deanna Herrmann RDCS Procedure CPT: Indications: eval function and structure Cardiac Hx: Technical Quality: Technically difficult study Contrast 1: Definity Total Dose (mL): 2 Contrast 2: Total Dose (mL): MEASUREMENTS (Male / Female) Normal Values 2D ECHO LVOT Diameter 2.4 cm LV Diastolic Volume MOD BP 147.9 cm??? 67 - 155 / 56 - 104 cm??? LV Systolic Volume MOD BP 60.2 cm??? 22 - 58 / 19 - 49 cm??? LV Ejection Fraction MOD BP 59.3 % >= 55 % LV Cardiac Index MOD BP 3221.5 cm???/min???m??? LV Diastolic Volume MOD 4C 173.1 cm??? LV Systolic Volume MOD 4C 66.9 cm??? LV Ejection Fraction MOD 4C 61.4 % LV Cardiac Index MOD 4C 3900.8 cm???/min???m??? LV Diastolic Length 4C 8.7 cm LV Systolic Length 4C 7.0 cm LV Diastolic Volume MOD 2C 126.6 cm??? LV Systolic Volume MOD 2C 50.2 cm??? LV Ejection Fraction MOD 2C 60.3 % LV Cardiac Index MOD 2C 2802.3 cm???/min???m??? LV Diastolic Length 2C 8.6 cm LV Systolic Length 2C 7.5 cm LA Volume 44.6 cm??? 18 - 58 / 22 - 52 cm??? LA Volume Index 17.4 cm???/m??? 16 - 28 cm???/m??? DOPPLER AV Peak Velocity 98.3 cm/s AV Peak Gradient 3.9 mmHg AV Mean Velocity 69.2 cm/s AV Mean Gradient 2.1 mmHg AV Velocity Time Integral 16.6 cm LVOT Peak Velocity 89.7 cm/s LVOT Peak Gradient 3.2 mmHg LVOT Velocity Time Integral 15.0 cm LVOT Stroke Volume 70.5 cm??? LVOT Stroke Volume Index 29.3 ml/m??? LVOT Cardiac Index 2586.8 cm???/min???m??? AV Area Cont Eq vti 4.2 cm??? AV Area Cont Eq pk 4.3 cm??? PV Peak Velocity 87.8 cm/s PV Peak Gradient 3.1 mmHg FINDINGS Left Ventricle Left ventricular ejection fraction is estimated at 45-50 %. Mildly increased left ventricular systolic volume. No obvious regional wall motion abnormalities. Right Ventricle Right ventricle not well visualized. Right Atrium Right atrium not well visualized. Left Atrium Normal left atrial size. Mitral Valve Structurally normal mitral valve. No mitral stenosis, regurgitation or prolapse. Aortic Valve Trileaflet aortic valve. No aortic valve stenosis or regurgitation. Tricuspid Valve Structurally normal tricuspid valve. No tricuspid stenosis, regurgitation or prolapse. Pulmonic Valve Pulmonic valve not well visualized. No pulmonic stenosis. No pulmonic regurgitation. Pericardium No pericardial effusion. Aorta Aortic annulus normal. CONCLUSIONS Left ventricular ejection fraction 45-50% No mitral regurgitation No tricuspid regurgitation No pericardial effusion Previewed by: Dr. Kervin Batista DO (Electronically Signed) Final Date: 25 November 2023 17:12
[2023-11-25] MEDS ORDERED: ACETAMINOPHEN TAB 325 MG TAB PO PRN (18:48)
[2023-11-26 06:43] LABS: Basophils % (A) 0 %; Eosinophils # (A) 0.1 k/uL (0-0.7); Eosinophils % (A) 2 %; HCT 46.7 % (39.0-53.0); HGB 15.6 gm/dL (13.0-17.5); Lymphocytes # (A) 2.1 k/uL (1.0-4.8); Lymphocytes % (A) 28 %; MCH 28.5 pg (25.0-35.0); MCHC 33.3 g/dL (31.0-37.0); MCV 85.4 fL (80.0-100.0); Mean Platelet Volume 8.8; Monocytes # (A) 0.3 k/uL (0-1.0); Monocytes % (A) 4 %; Neutrophils % (A) 65 %; Platelet Count 171 k/uL (150-450); RBC 5.46 m/uL (4.30-5.90); RDW 14.5 % (11.5-15.5); WBC 7.7 k/uL (3.8-10.6)
[2023-11-26 06:44] LABS: Basophils % (A) 0 %; Eosinophils # (A) 0.1 k/uL (0-0.7); Eosinophils % (A) 2 %; HCT 45.1 % (39.0-53.0); HGB 15.4 gm/dL (13.0-17.5); Lymphocytes # (A) 2.1 k/uL (1.0-4.8); Lymphocytes % (A) 28 %; MCH 29.2 pg (25.0-35.0); MCHC 34.1 g/dL (31.0-37.0); MCV 85.4 fL (80.0-100.0); Mean Platelet Volume 9.1; Monocytes # (A) 0.3 k/uL (0-1.0); Monocytes % (A) 5 %; Neutrophils # (A) 4.9 k/uL (1.3-7.7); Neutrophils % (A) 64 %; Platelet Count 154 k/uL (150-450); RBC 5.28 m/uL (4.30-5.90); RDW 14.5 % (11.5-15.5); WBC 7.7 k/uL (3.8-10.6)
[2023-11-26 06:51] LABS: INR 1.1 (<1.2); Prothrombin Time 11.8 sec (10.0-12.5)
[2023-11-26 07:18] LABS: African American GFR (CKD) >90 (>60 ml/min/1.73 sqM); Anion Gap 9 mmol/L; Blood Urea Nitrogen 14 mg/dL (9-20); Calcium 9.1 mg/dL (8.4-10.2); Carbon Dioxide 26 mmol/L (22-30); Chloride 102 mmol/L (98-107); Glucose 147 mg/dL (74-99); Non-African American GFR(CKD) >90 (>60 ml/min/1.73 sqM); Sodium 137 mmol/L (137-145)
[2023-11-26] MEDS: NICOTINE 14MG/24HR PATCH TRANSDERM SCH (07:43)
--- NOTE | 2023-11-26 11:48 | P.PN ---
Subjective Progress Note Date: 11/26/23 Hospital Course: Patient is a very pleasant 63-year-old male with a past medical history of nicotine dependence and chronic back pain status post cervical fusion follows outpatient with pain management. He presented to the hospital from [facility] where he initially presented to have steroid injections to the lumbar spine secondary to chronic pain. Preprocedure vital signs revealed patient to have tachycardia with heart rate in 140s and an EKG was completed showing new onset atrial flutter. Patient was asymptomatic but sent to our facility for evaluation. Upon arrival to our hospital, patient underwent evaluation in the emergency department. Vital signs upon arrival show blood pressure 111/78, heart rate 137, respiratory rate 20, temp 97.6 F, and SpO2 of 96% on room air. EKG was completed showing atrial flutter with RVR at 138 bpm. Chest x-ray completed negative for acute cardiopulmonary process. Labs completed and reviewed. CBC unremarkable. Coagulation profile normal findings. BMP showing mild hyperglycemia with glucose of 147 otherwise normal findings. Magnesium 1.9. Liver profile unremarkable. Troponin was less than 0.012 and TSH was also normal findings at 3.390. Patient was started on anticoagulation with low intensity heparin infusion along with Cardizem infusion for rate control. Patient was admitted under our services with consultation to cardiology. Echocardiogram was completed showing a reduced EF of 45 to 50% with no reported structural or valvular abnormalities. Physical exam: Vital signs reviewed and stable. General: Nontoxic, no distress and appears stated age. Derm: Skin warm and dry, normal coloration for ethnicity. Head: Atraumatic, normocephalic and symmetric. Eyes: EOM's intact, no lid lag, and anicteric sclera Mouth: no lip lesions, mucus membranes moist Cardiovascular: Regular rate and regular with normal S1S2, no murmur, positive posterior tibial pulses bilaterally, and cap refill < 2 seconds. Lungs: Respirations even, regular, and unlabored on room air. Lungs CTA bilaterally, no rhonchi, no rales, no wheezing, and no accessory muscle usage. Abdominal: soft, nontender to palpation, no guarding, no appreciable organomegaly Ext: ROM intact. No gross muscle atrophy, no edema, no contractures Neuro: Speech clear, face symmetrical and CN II-XII grossly intact with no noted focal neuro deficits Psych: Alert and oriented to person, place, time, and situation. Appropriate and pleasant affect. Assessment and Plan of Care: Atrial flutter with RVR, New onset -Rate currently controlled, patient remains in atrial flutter on monitor with controlled rate in 70s. Cardizem infusion discontinued and order placed for metoprolol 25 mg twice daily starting now. -Echocardiogram was completed showing a reduced EF of 45 to 50% with no reported structural or valvular abnormalities. -Cardiology consulted, appreciate recommendations -Telemetry monitoring -Troponin was negative at less than 0.012. TSH normal findings at 3.390. -Continue low intensity heparin infusion with close monitoring of PTT every 6 hours for goal therapeutic range of 45 to 79 seconds. -[id number] score is 0 patient denies history of hypertension, CHF, TIA/CVAs, or any other cardiac history. 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 Nicotine dependence -Recommend smoking cessation. Order placed for nicotine patch 14 mg daily. Data and imaging reviewed: Echocardiogram was completed and reviewed report showing a reduced EF of 45 to 50% with no reported structural or valvular abnormalities. Morning labs reviewed. CBC remains unremarkable. PTT was slightly subth erapeutic at 44.4. BMP remains unremarkable. Blood glucose 147. Vital signs reviewed. Blood pressure 114/76, heart rate 69, respiratory rate 18, and SpO2 of 95% on room air. CODE STATUS: Full code DVT prophylaxis: Heparin infusion Anticipated discharge date: Pending clinical course, likely within the next 24 hours. Awaiting cardiology evaluation. Anticipated discharge place: Home Patient was seen independently by Nurse Practitioner. This document was prepared using [employer] dictation software. Please allow for errors in plant taxonomist while rare they do occur. I reviewed the documentation as provided by the ODALIS above, who is the original author of this note. I agree with the documented assessment and plan, with the following changes: none Objective - Vital Signs Vital signs: Vital Signs Temp 97.6 F 11/25/23 07:27 Pulse 71 11/26/23 06:06 Resp 18 11/26/23 06:06 BP 121/91 11/26/23 06:06 Pulse Ox 95 11/25/23 19:24 FiO2 Intake & Output 11/25/23 11/26/23 11/26/23 18:59 06:59 18:59 Intake Total 250 Balance 250 Weight 127.006 kg Intake: Intake, IV Titration 250 Amount Heparin Sod,Pork in 0.45% 250 NaCl 25,000 unit In 0.45 % NaCl 1 250ml.bag @ 7.87 UNITS/KG/HR 9.995 mls/hr IV .Q24H [facility] Rx#: [id number] - Labs CBC & Chem 7: 11/26/23 06:29 11/26/23 06:29 Labs: Abnormal Lab Results - Last 24 Hours (Table) 11/25/23 11/25/23 11/26/23 Range/Units 17:05 20:33 06:29 APTT 45.6 H 44.4 H (22.0-30.0) sec Creatinine 0.57 L (0.66-1.25) mg/dL Glucose 147 H (74-99) mg/dL
[2023-11-26] MEDS: METOPROLOL TARTRATE 25 MG TAB PO SCH (12:19)
--- NOTE | 2023-11-26 14:44 | P.CRDCN ---
History of Present Illness Consult date: 11/26/23 History of present illness: HISTORY OF PRESENTING ILLNESS 63-year-old with PMH of smoking, back pain, was being seen by a orthopedic for an outpatient back spine injection where anesthesiologist noticed that he was in atrial flutter with high heart rate and was referred to the hospital. Patient reports that he has not had any symptoms of chest pain chest pressure shortness of breath. He denies any palpitation lightheadedness or dizziness. He denies any prior history of cardiovascular conditions. He denies any history of diabetes stroke RI. Admission labs shows hemoglobin 15.6, no concerns of bleeding, BUN 12, creatinine 0.6, potassium 4.2, magnesium 1.9, troponin was negative TSH was 3.3 REVIEW OF SYSTEMS 14 point review of system is negative except what is mentioned above in HPI. PHYSICAL EXAMINATION Vital signs reviewed. Head: Normocephalic. Eyes: Sclerae nonicteric. Neck: Brisk carotid upstroke, no jugular venous distention. Lungs: Clear to auscultation. Heart: Irregularly irregular, S1-S2, no S3, no murmur or rub. Abdomen: Soft nontender, positive bowel sounds. Extremities: No edema, intact distal pulses. Neuro: Alert, oritented, no focal deficits. Detailed neuro exam was not performed. ASSESSMENT Newly diagnosed atrial flutter with RVR. Currently rate controlled. Diagnosed in November 2023 first. 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 Recommended early outpatient follow-up with recommended outpatient MALLIKA cardioversion. Recommend outpatient stress testing Matthew Ly MD, FACC, RPVI Thank you for allowing [facility] to participate in this patient's care. Feel free to reach out in case of any followup questions. Past Medical History Past Medical History: Diabetes Mellitus, Musculoskeletal Disorder, Osteoarthritis (OA), Sleep Apnea/CPAP/BIPAP Additional Past Medical History / Comment(s): doesn't use anything for sleep apnea History of Any Multi-Drug Resistant Organisms: None Reported Past Surgical History: Appendectomy Additional Past Surgical History / Comment(s): cervical fusion, circumcision Past Anesthesia/Blood Transfusion Reactions: No Reported Reaction Past Psychological History: No Psychological Hx Reported Smoking Status: Current every day smoker Past Alcohol Use History: Occasional Past Drug Use History: None Reported Medications and Allergies Allergies Allergy/AdvReac Type Severity Reaction Status Date / Time bee pollen Allergy Anaphylaxis Verified 11/25/23 11:16 hydrocodone [From Vicodin] Allergy Rash/Hives Verified 11/25/23 11:16 egg AdvReac Nausea & Verified 11/25/23 11:16 Vomiting Physical Exam Vitals: Vital Signs Pulse Resp BP Pulse Ox 11/26/23 13:46 68 18 122/76 98 11/26/23 12:00 76 18 116/76 98 11/26/23 09:00 69 18 114/76 11/26/23 06:06 71 18 121/91 11/25/23 23:58 78 17 111/82 11/25/23 19:24 75 18 121/79 95 11/25/23 18:00 77 20 109/69 96 11/25/23 17:00 77 20 116/92 98 11/25/23 14:57 98 20 112/60 98 Intake and Output 11/25/23 11/26/23 11/26/23 22:59 06:59 14:59 Intake Total 250 115.833 Balance 250 115.833 Intake: Intake, IV Titration 250 115.833 Amount Diltiazem 125 mg In 115.833 Sodium Chloride 0.9% 100 ml @ 5 MG/HR 5 mls/hr IV .Q24H [facility] Rx#:[id number] Heparin Sod,Pork in 0.45% 250 NaCl 25,000 unit In 0.45 % NaCl 1 250ml.bag @ 7.87 UNITS/KG/HR 9.995 mls/hr IV .Q24H [facility] Rx#: [id number] Results 11/26/23 06:29 11/26/23 06:29 Coagulation 11/25/23 11/25/23 11/26/23 Range/Units 17:05 20:33 06:29 PT 11.8 (10.0-12.5) sec APTT 45.6 H 44.4 H (22.0-30.0) sec CBC 11/26/23 11/26/23 Range/Units 06:29 06:29 WBC 7.7 7.7 (3.8-10.6) k/uL RBC 5.46 5.28 (4.30-5.90) m/uL Hgb 15.6 15.4 (13.0-17.5) gm/dL Hct 46.7 45.1 (39.0-53.0) % Plt Count 171 154 (150-450) k/uL Comprehensive Metabolic Panel 11/26/23 Range/Units 06:29 Sodium 137 (137-145) mmol/L Potassium 4.0 (3.5-5.1) mmol/L Chloride 102 (98-107) mmol/L Carbon Dioxide 26 (22-30) mmol/L BUN 14 (9-20) mg/dL Creatinine 0.57 L (0.66-1.25) mg/dL Glucose 147 H (74-99) mg/dL Calcium 9.1 (8.4-10.2) mg/dL Current Medications Generic Name Dose Route Start Last Admin Trade Name Freq PRN Reason Stop Dose Admin Acetaminophen 650 mg 11/25/23 18:48 Acetaminophen Tab 325 Mg Tab PO Q6HR PRN Mild Pain or Fever > 100.5 Apixaban 5 mg 11/26/23 21:00 Apixaban 5 Mg Tab PO BID [facility] Protocol Atorvastatin Calcium 20 mg 11/26/23 14:45 Atorvastatin 20 Mg Tab PO DAILY [facility] Dapagliflozin 10 mg 11/26/23 14:45 Dapagliflozin Propanediol 10 Mg Tablet PO DAILY [facility] Metoprolol Tartrate 50 mg 11/26/23 21:00 Metoprolol Tartrate 25 Mg Tab PO BID [facility] Naloxone HCl 0.2 mg 11/25/23 11:34 Naloxone 0.4 Mg/Ml 1 Ml Vial IV Q2M PRN Opioid Reversal Nicotine 1 patch 11/25/23 18:45 11/26/23 08:55 Nicotine 14mg/24hr Patch TRANSDERM Not Given DAILY [facility] Intake and Output 11/25/23 11/26/23 11/26/23 22:59 06:59 14:59 Intake Total 250 115.833 Balance 250 115.833 Intake: Intake, IV Titration 250 115.833 Amount Diltiazem 125 mg In 115.833 Sodium Chloride 0.9% 100 ml @ 5 MG/HR 5 mls/hr IV .Q24H [facility] Rx#:[id number] Heparin Sod,Pork in 0.45% 250 NaCl 25,000 unit In 0.45 % NaCl 1 250ml.bag @ 7.87 UNITS/KG/HR 9.995 mls/hr IV .Q24H [facility] Rx#: [id number] 11/26/23 06:29 11/26/23 06:29
--- NOTE | 2023-11-26 15:16 | P.DS ---
Providers Date of admission: 11/25/23 11:34 Expected date of discharge: 11/26/23 Attending physician: Aminah France MD Consults: 11/25/23 11:34 Consult Physician Urgent Consulting Provider: [facility] Consult Reason/Comments: new onset aflutter Do you want consulting provider notified?: Yes Primary care physician: Eduard Ribeiro [facility] Course: Discharge Diagnosis: Atrial flutter with RVR, New onset . Rate currently controlled, patient remains in atrial flutter on monitor with controlled rate in 70s. Patient evaluated by cardiology recommending outpatient sleep apnea study, stress testing and MALLIKA with cardioversion. Cardiology clearing patient from their perspective for discharge. Patient medically stable at this time and free from any complaints. Patient discharged home on metoprolol 50 mg twice daily, Eliquis 5 mg twice daily, Lipitor 20 mg daily, and Farxiga 10 mg daily. Newly diagnosed heart failure with mildly reduced EF of 45 to 50% Nicotine dependence. Recommend smoking cessation. Hospital Course: Patient is a very pleasant 63-year-old male with a past medical history of nicotine dependence and chronic back pain status post cervical fusion follows outpatient with pain management. He presented to the hospital from [facility] where he initially presented to have steroid injections to the lumbar spine secondary to chronic pain. Preprocedure vital signs revealed patient to have tachycardia with heart rate in 140s and an EKG was completed showing new onset atrial flutter. Patient was asymptomatic but sent to our facility for evaluation. Upon arrival to our hospital, patient underwent evaluation in the emergency department. Vital signs upon arrival show blood pressure 111/78, heart rate 137, respiratory rate 20, temp 97.6 F, and SpO2 of 96% on room air. EKG was completed showing atrial flutter with RVR at 138 bpm. Chest x-ray completed negative for acute cardiopulmonary process. Labs completed and reviewed. CBC unremarkable. Coagulation profile normal findings. BMP showing mild hyperglycemia with glucose of 147 otherwise normal findings. Magnesium 1.9. Liver profile unremarkable. Troponin was less than 0.012 and TSH was also normal findings at 3.390. Patient was started on anticoagulation with low intensity heparin infusion along with Cardizem infusion for rate control. Patient was admitted under our services with consultation to cardiology. Echocardiogram was completed showing a reduced EF of 45 to 50% with no reported structural or valvular abnormalities. Rate currently controlled, patient remains in atrial flutter on monitor with controlled rate in 70s. Patient evaluated by cardiology recommending outpatient sleep apnea study, stress testing and MALLIKA with cardioversion. Cardiology clearing patient from their perspective for discharge. Patient medically stable at this time and free from any complaints. Patient discharged home on metoprolol 50 mg twice daily, Eliquis 5 mg twice daily, Lipitor 20 mg daily, and Farxiga 10 mg daily. Patient to follow-up with cardiology office for results of A1c, lipid profile, and BNP results per frame opener as they are not available at time of discharge. Physical exam: Vital signs reviewed and stable. General: Nontoxic, no distress and appears stated age. Derm: Skin warm and dry, normal coloration for ethnicity. Head: Atraumatic, normocephalic and symmetric. Eyes: EOM's intact, no lid lag, and anicteric sclera Mouth: no lip lesions, mucus membranes moist Cardiovascular: Regular rate and regular with normal S1S2, no murmur, positive posterior tibial pulses bilaterally, and cap refill < 2 seconds. Lungs: Respirations even, regular, and unlabored on room air. Lungs CTA bilaterally, no rhonchi, no rales, no wheezing, and no accessory muscle usage. Abdominal: soft, nontender to palpation, no guarding, no appreciable organomegaly Ext: ROM intact. No gross muscle atrophy, no edema, no contractures Neuro: Speech clear, face symmetrical and CN II-XII grossly intact with no noted focal neuro deficits Psych: Alert and oriented to person, place, time, and situation. Appropriate and pleasant affect. A total of 38 minutes of time were spent preparing this complex discharge summary. Pt was discharged on 11/26/2023 at 3:04 PM. Patient was seen independently by Nurse Practitioner. This document was prepared using [employer] dictation software. Please allow for errors in baton teacher while rare they do occur. Patient Condition at Discharge: Stable Plan - Discharge Summary New Discharge Prescriptions: New Apixaban [Eliquis] 5 mg PO BID 30 Days #60 tab Atorvastatin [Lipitor] 20 mg PO DAILY 30 Days #30 tab Dapagliflozin Propanediol [Farxiga] 10 mg PO DAILY 30 Days #30 tab Metoprolol Tartrate [Lopressor] 50 mg PO BID 30 Days #60 tab Discharge Medication List Apixaban [Eliquis] 5 mg PO BID 30 Days #60 tab 11/26/23 [Rx] Atorvastatin [Lipitor] 20 mg PO DAILY 30 Days #30 tab 11/26/23 [Rx] Dapagliflozin Propanediol [Farxiga] 10 mg PO DAILY 30 Days #30 tab 11/26/23 [Rx] Metoprolol Tartrate [Lopressor] 50 mg PO BID 30 Days #60 tab 11/26/23 [Rx] Follow up Appointment(s)/Referral(s): Matthew Ly MD [Medical Doctor] - 1 Week Eduard Bach MD [Primary Care Provider] - 1-2 days Patient Instructions/Handouts: Atrial Flutter (DC) Activity/Diet/Wound Care/Special Instructions: Activity: As tolerated. Take breaks as needed. Diet: Heart healthy and carb consistent diet. Avoid salts, or foods with hidden salts such as canned or boxed foods and frozen dinners. Extra salt makes your heart work harder and traps the fluid in your body for longer. Special Instructions: Take all of your medications as directed and remember to keep all of your doctor's appointments and follow-up as needed. Thank you for allowing us to participate in your care, it was truly a pleasure having you for our patient!!! . Discharge Disposition: HOME SELF-CARE Plan of Treatment: Sleep apnea testing early on with Dr Gomez Plan is to discharge Mr. Marquez on blood thinner called Eliquis and heart rate controlling medication called metoprolol. I have requested him to follow-up with me next week for an outpatient MALLIKA cardioversion evaluation. Meanwhile patient will read about the procedure and will ask me appropriate questions and follow-up
[2023-11-26 15:20] LABS: NT-Pro-B-Type Natriuretic Pept 40 pg/mL
[2023-11-26] MEDS: ATORVASTATIN 20 MG TAB PO SCH (15:39)
[2023-11-26] MEDS: DAPAGLIFLOZIN PROPANEDIOL 10 MG TABLET PO SCH (15:39)
[2023-11-26 16:22] VITALS: BP 125/82; PULSE 86; RESP 16; TEMP 98.6
[2023-11-26] MEDS ORDERED: APIXABAN 5 MG TAB PO SCH (21:00)
[2023-11-26] MEDS ORDERED: METOPROLOL TARTRATE 50 MG TAB PO SCH (21:00)
[2023-11-27 07:27] LABS: Chol/HDL Ratio 4.35 Ratio; LDL Cholesterol,Calculated 61.7 mg/dL (0.0-131.0)
== END 2023-11-26 16:17 | disposition home or self-care (01) | DRG 309 ==
LOC: EC 07:25 → 3SCARD 11:34
PROVIDERS: ADMIT Internal Medicine; ATTEND Internal Medicine
DX: I48.92 Unspecified atrial flutter (principal); I50.22 Chronic systolic (congestive) heart failure; Z68.41 Body mass index [BMI] 40.0-44.9, adult; I42.8 Other cardiomyopathies; G89.29 Other chronic pain; G47.30 Sleep apnea, unspecified; E11.65 Type 2 diabetes mellitus with hyperglycemia; E66.01 Morbid (severe) obesity due to excess calories; F17.200 Nicotine dependence, unspecified, uncomplicated; Z79.01 Long term (current) use of anticoagulants; Z79.84 Long term (current) use of oral hypoglycemic drugs; Z79.899 Other long term (current) drug therapy
CPT/HCPCS: 36415; 71046; 80048; 80053; 80061; 83036; 83735; 83880; 84443; 84484; 85025; 85610; 85730; 93005; 93306; 96368; 96375; 99285; 99291

== ENCOUNTER 2023-12-15 08:28 | Day surgery (SDC) | payer BC ==
[~2023-12-15 08:28] MED LIST: LACTATED RINGERS 1,000 ML IV SCH; LIDOCAINE 1% (10MG/ML) FOR IV START INTRADERMA PRN; SODIUM CHLORIDE 0.9% 1,000 ML IV SCH
[2023-12-15] MEDS: IV FLUID CONTINUATION 1,000 ML IV ONE (09:00)
[2023-12-15 09:23] LABS: Glucose,Whole Blood 126 mg/dL (70-110)
[2023-12-15 09:28] VITALS: TEMP 98
[2023-12-15] MEDS ORDERED: PROPOFOL 10 MG/ML 20 ML VIAL IV ONE (10:05)
[2023-12-15] MEDS ORDERED: KETAMINE HCL IN 0.9 % NACL 50 MG/5 ML SYRINGE ONE (10:05)
[2023-12-15] MEDS ORDERED: LIDOCAINE 1% INJ 10MG/ML (20 ML MDV) ONE (10:05)
[2023-12-15] MEDS: BENZOCAINE SPRAY 1 EACH MM ONE (10:15)
--- NOTE | 2023-12-15 10:38 | P.TEE ---
Date of Procedure: 12/15/23 Description of Procedure(s): Procedure performed: 1. Transesophageal Echocardiogram. 2. Synchronized Cardioversion. Indications: Persistent atrial fibrillation Consent: I have discussed the risks, benefits and alternative therapies for the above-mentioned procedure. The patient has indicated understanding and acceptance of the risks of the procedure. Signed consent was obtained and was placed in the paper chart. Moderate conscious sedation: Moderate conscious sedation was administered by anesthesia, see separate report. Procedural Steps: Timeout was performed in usual fashion. Patient's heart rate, blood pressure, oxygen saturation and ECG were monitored. After achieving appropriate moderate conscious sedation, MALLIKA MALLIKA probe was advanced without difficulty and without any immediate complications to the esophagus. MALLIKA study was performed with color flow doppler, pulsed wave doppler and continuous wave doppler. MALLIKA was limited because of patient getting hypoxic intraoperatively. Left atrial appendage was visualized and all angles. No other assessment was performed. SYNCHRONIZED CARDIOVERSION After making sure that there is no evidence of intracardiac thrombus, pacer pads were placed and secured on patients chest and back. Synchronized cardioversion was perfromed using 200 J. [1] attempt. Sinus rhythm was confirmed with a 12 lead EKG. Patient tolerated the procedure well. Patient was transferred to the post procedure area in stable and satisfactory condition. Complications: none Blood loss: none FINDINGS Limited transesophageal echocardiogram because of intraoperative hypoxia because of underlying untreated sleep apnea. Left Atrium: Moderate left atrial dilatation. No evidence of thrombus or masses in left atrium. Left Atrial Appendage: No evidence of thrombus or mass seen in CAROLEE CONCLUSION: Limited MALLIKA showing no evidence of thrombus in left atrial appendage or left atrium. Successful synchronized cardioversion 1 attempt 200 J with resolution of normal sinus rhythm. Recommendation Discharge home in next 1 to 2 hours after postop monitoring. Continue following up on outpatient basis in next 1 to 2 weeks. He is on Eliquis 5 mg twice daily, Farxiga, metoprolol 50 mg twice daily. No changes to the medications were made today. Matthew Ly MD, RPVI, FACC Thank you for allowing [facility] to participate in this patient's care. Feel free to reach out in case of any followup questions.
[2023-12-15 12:01] VITALS: RESP 18
[2023-12-15 12:29] VITALS: BP 117/65; PULSE 74
== END 2023-12-15 12:29 | disposition home or self-care (01) ==
LOC: OR 08:28
PROVIDERS: ATTEND Student in an Organized Health Care Education/Training Program
DX: I48.19 Other persistent atrial fibrillation (principal); E78.5 Hyperlipidemia, unspecified; G47.33 Obstructive sleep apnea (adult) (pediatric); E11.9 Type 2 diabetes mellitus without complications; M19.90 Unspecified osteoarthritis, unspecified site; I48.92 Unspecified atrial flutter; Z79.01 Long term (current) use of anticoagulants; Z91.030 Bee allergy status; Z91.012 Allergy to eggs; Z88.5 Allergy status to narcotic agent; Z79.899 Other long term (current) drug therapy
CPT/HCPCS: 93312; 93320; 93325; 92960; J2003; J2704

== ENCOUNTER → 2024-06-19 | Outpatient (CLI) | payer BC ==
--- NOTE | 2024-06-19 14:14 | US ---
EXAMINATION TYPE: US kidneys/renal and bladder DATE OF EXAM: 06/19/2024 COMPARISON: NONE CLINICAL INDICATION: Male, 64 years old with history of R31.9 HEMATURIA; Macroscopic hematuria. Diabe tic. No pain. TECHNIQUE: Grayscale imaging of the bilateral kidneys and urinary bladder: FINDINGS: EXAM MEASUREMENTS: Right Kidney: 12.7 x 6.6 x 6.8 cm Left Kidney: 12.6 x 6.7 x 6.1 cm Right Kidney: No hydronephrosis or masses seen Left Kidney: No hydronephrosis or masses seen Bladder: wnl Bilateral Jets seen: Yes IMPRESSION: No hydronephrosis or other specific sonographic abnormality. [facility], , 06/19/2024 2:12 PM
== END | disposition home or self-care (01) ==
LOC: RADUSWWP 12:47
PROVIDERS: ATTEND Family Medicine
DX: R31.9 Hematuria, unspecified (principal)
CPT/HCPCS: 76770